=== PATIENT | male | born 1935 | race Caucasian/White ===

== ENCOUNTER 2017-02-16 05:17 | Emergency (ER) | payer OTHER ==
[~2017-02-16] VITALS: Ht 177.8 cm; Wt 81.6 kg
[2017-02-16 06:41] LABS: Basophils # (auto) 0 uL; Basophils % (auto) 0.7 % (0.0-2.0); Eosinophils # (auto) 0.3 uL; Eosinophils % (auto) 4.7 % (0.0-7.0); Hematocrit 39.7 % (41.0-53.0); Hemoglobin 13.4 g/dL (13.5-17.5); Lymphocytes # (auto) 1.2 uL; Lymphocytes % (auto) 20.5 % (10.0-50.0); Mean Corpuscular Hemoglobin 31.1 pg (28.0-32.0); Mean Corpuscular Hgb Conc. 33.9 g/dL (32.0-36.0); Mean Corpuscular Volume 91.8 fL (80.0-100.0); Mean Platelet Volume 6.7 fL (7.4-10.4); Monocytes # (auto) 0.7 uL; Monocytes % (auto) 13.1 % (0.0-12.0); Neutrophils # (auto) 3.5 uL; Platelet Count (auto) 222 10^3/uL (140-450); White Blood Cell 5.7 10^3/uL (4.4-10.8)
[2017-02-16 06:50] LABS: Albumin 3.6 g/dL (3.4-5.0); Anion Gap 6 (5-15); Aspartate Aminotransferase 21 U/L (15-37); BUN/Creatinine Ratio 15.3; Blood Urea Nitrogen 27 mg/dL (7-18); Calcium 8.5 mg/dL (8.5-10.1); Carbon Dioxide 29 mmol/L (21-32); Chloride 101 mmol/L (98-107); GFR African American 48 mL/min; GFR Non-African American 40 mL/min; Glucose 234 mg/dL (74-106); Magnesium 2.3 mg/dL (1.6-2.6); Potassium 4.4 mmol/L (3.5-5.1); Sodium 136 mmol/L (136-145)
[2017-02-16 06:54] LABS: Alkaline Phosphatase 94 U/L (45-117); Bilirubin, Total 0.6 mg/dL (0.2-1.0); Total Protein 7.5 g/dL (6.4-8.2)
[2017-02-16 07:02] LABS: INR 3.5 (0.9-1.15); Partial Thromboplastin Time 44.8 sec (22.64-33.71); Prothrombin Time 37.8 sec (9.37-12.3)
[2017-02-16 09:30] VITALS: BP 132/82
== END 2017-02-16 11:19 | disposition home or self-care (01) ==
LOC: EDBD 05:17 → ER 05:17 → EDUNIT# 05:17 → ER 11:19
DX: E11.40 Type 2 diabetes mellitus with diabetic neuropathy, unspecified (principal); E11.21 Type 2 diabetes mellitus with diabetic nephropathy; F03.90 Unspecified dementia, unspecified severity, without behavioral disturbance, psychotic disturbance, mood disturbance, and anxiety; K21.9 Gastro-esophageal reflux disease without esophagitis; I10 Essential (primary) hypertension; Z86.73 Personal history of transient ischemic attack (TIA), and cerebral infarction without residual deficits; Z95.1 Presence of aortocoronary bypass graft; Z88.8 Allergy status to other drugs, medicaments and biological substances
CPT/HCPCS: 36415; 71010; 80053; 82962; 83735; 84484; 85025; 85610; 85730